=== PATIENT | male | born 1980 | race Hispanic/Latino ===

== ENCOUNTER 2022-05-15 09:47 | Observation (INO) | payer BC, OTHER ==
[~2022-05-15] VITALS: Ht 177.8 cm; Wt 90.7 kg
[2022-05-15] VITALS (23 sets, daily range): BP systolic 98–125; BP diastolic 59–83
[2022-05-15 10:25] LABS: BASOPHILS % (AUTO) 0.2 % (0.0-5.0); EOSINOPHILS % (AUTO) 0.9 % (0.0-8.0); HEMATOCRIT 44.6 % (42-54); LYMPHOCYTES % (AUTO) 18.8 % (21.0-51.0); MEAN CORPUSCULAR HEMOGLOBIN 29.4 pg (27.0-33.0); MONOCYTES % (AUTO) 7.2 % (3.0-13.0); NEUTROPHILS % (AUTO) 72.5 % (40.0-77.0); PLATELET COUNT (AUTO) 251 K/uL (130-400); RED BLOOD CELL COUNT(AUTO) 5.31 MIL/uL (4.50-6.20); RED CELL DISTRIBUTION WIDTH 11.7 % (11.0-15.5); WHITE BLOOD COUNT (AUTO) 17.4 K/uL (4.8-10.8)
[2022-05-15 10:45] LABS: ALBUMIN 4.3 g/dL (3.5-5.0); CREATININE 1.4 mg/dL (0.5-1.5); POTASSIUM 3.7 mmol/L (3.5-5.1); TOTAL PROTEIN, SERUM 7.9 g/dL (6.0-8.3)
[2022-05-15] MEDS ORDERED: IOHEXOL-350 75 ML VIAL IV ONE (11:20)
[2022-05-15] MEDS ORDERED: 0.9%NACL 1000ML 1,000 ML IV ONE (11:21)
[2022-05-15] MEDS: 0.9%NACL 1000ML 1,000 ML IV SCH ×4 (11:36→20:01)
[2022-05-15] MEDS ORDERED: ZOSYN 3.375GM+NS 50ML 50 ML IVPB ONE (12:15)
[2022-05-15] MEDS ORDERED: ZOSYN 3.375GM +NS 50ML IVPB ONE (12:30)
[2022-05-15] MEDS ORDERED: HYDROMORPHONE 0.5 MG SYG (0.5MG/0.5ML) IVP PRN (13:00)
[2022-05-15] MEDS ORDERED: ONDANSETRON 4MG INJ IVP PRN (13:00)
[2022-05-15] MEDS ORDERED: ACETAMINOPHEN 500 MG TABLET PO PRN (13:00)
[2022-05-15] MEDS: ZOSYN 3.375GM +NS 50ML IVPB SCH ×2 (13:30→20:01)
[2022-05-15] MEDS ORDERED: 0.9%NACL 50ML IV SCH (13:30)
[2022-05-15 13:43] LABS: APPEARANCE,URINE CLEAR (CLEAR); BILIRUBIN,URINE NEGATIVE (NEGATIVE); COLOR,URINE COLORLESS (YELLOW); GLUCOSE, URINE (UA) NEGATIVE (NEGATIVE); KETONES,URINE NEGATIVE (NEGATIVE); LEUKOCYTE ESTERASE ,URINE NEGATIVE Leu/uL (NEGATIVE); NITRATE,URINE NEGATIVE (NEGATIVE); OCCULT BLOOD,URINE NEGATIVE (NEGATIVE); PH,URINE 5.5 (5.0-8.0); PROTEIN,URINE NEGATIVE (NEGATIVE); UROBILINOGEN,URINE 0.2 mg/dL (0.2-1.0)
[2022-05-15 13:45] LABS: RBC,URINE 0-1 /HPF (0-1); WBC,URINE 0-1 /HPF (0-1)
[2022-05-15 13:45] LABS: PROTHROMBIN TIME 10.9 SEC (9.6-11.6)
[2022-05-15 13:46] LABS: PARTIAL THROMBOPLASTIN TIME 31.4 SEC (26.3-35.5)
[2022-05-15] MEDS ORDERED: PANTOPRAZOLE 40 MG/VIAL ONE (14:07)
[2022-05-15] MEDS: PANTOPRAZOLE 40 MG/VIAL IVP SCH (14:09)
[2022-05-15] MEDS ORDERED: HYDROMORPHONE 0.5 MG SYG (0.5MG/0.5ML) ONE (14:11)
[2022-05-15 14:17] LABS: MAGNESIUM 2.2 mg/dL (1.80-2.40)
[2022-05-15] MEDS ORDERED: BUPIVACAINE/PF 0.5% 30ML VIAL ONE (15:19)
[2022-05-15 15:21] LABS: THYROID STIMULATING HORMONE 1.59 uIU/mL (0.36-3.74)
[2022-05-15] MEDS ORDERED: ROCURONIUM 10MG/1ML SYR 10 MG/ML ML ONE ×2 (16:27→17:12)
[2022-05-15] MEDS ORDERED: FENTANYL CITRATE PF 50 MCG/1 ML 2ML VIAL ONE ×2 (16:27→16:50)
[2022-05-15] MEDS ORDERED: MIDAZOLAM HCL 1 MG/ML 2ML VIAL ONE (16:27)
[2022-05-15] MEDS ORDERED: PROPOFOL 10 MG/ML 20ML VIAL IV ONE (16:27)
[2022-05-15] MEDS ORDERED: ONDANSETRON 4MG INJ ONE (16:50)
[2022-05-15] MEDS ORDERED: HYDROMORPHONE 1 MG INJ ONE (17:02)
[2022-05-15] MEDS ORDERED: GLYCOPYRROLATE 1 MG/5 ML SYRINGE ONE (17:36)
[2022-05-15] MEDS ORDERED: NEOSTIGMINE 5MG/5ML SYR IV ONE (17:40)
[2022-05-15] MEDS ORDERED: KETOROLAC 15MG/ML VIAL (15MG/ML) IV PRN (20:30)
[2022-05-16] VITALS: BP 111/63
[2022-05-16 00:56] VITALS: BP 113/64
[2022-05-16 04:00] VITALS: BP 96/64
[2022-05-16] MEDS: ZOSYN 3.375GM +NS 50ML IVPB SCH ×2 (04:00→13:11)
[2022-05-16 05:09] LABS: HEMATOCRIT 35.6 % (42-54); MEAN CORPUSCULAR HGB CONC 33.4 g/dL (32.0-36.0); MEAN CORPUSCULAR VOLUME 86.6 fL (79-99); RED BLOOD CELL COUNT(AUTO) 4.11 MIL/uL (4.50-6.20); RED CELL DISTRIBUTION WIDTH 11.9 % (11.0-15.5); WHITE BLOOD COUNT (AUTO) 8.6 K/uL (4.8-10.8)
[2022-05-16 05:21] LABS: CREATININE 1.2 mg/dL (0.5-1.5); POTASSIUM 3.8 mmol/L (3.5-5.1)
[2022-05-16 06:16] LABS: ALBUMIN 3.1 g/dL (3.5-5.0); BILIRUBIN,DIRECT 0.1 mg/dL (0.0-0.3); TOTAL PROTEIN, SERUM 6.1 g/dL (6.0-8.3)
[2022-05-16] MEDS ORDERED: LEVO-70 PO (07:38)
[2022-05-16 08:00] VITALS: BP 113/71
[2022-05-16] MEDS: 0.9%NACL 1000ML 1,000 ML IV SCH (08:27)
[2022-05-16] MEDS ORDERED: METR-172 PO (10:01)
[2022-05-16 12:00] VITALS: BP 118/77
[2022-05-16] MEDS: PANTOPRAZOLE 40 MG/VIAL IVP SCH (13:12)
[2022-05-16 16:00] VITALS: BP 112/64
[2022-06-08] MEDS ORDERED: CYCL10TA16 PO (00:26)
[2022-06-08] MEDS ORDERED: IBUP-2070 PO (00:26)
== END 2022-05-16 18:00 | disposition home or self-care (01) ==
LOC: EDH 09:47 → EDHIP 13:03 → INTOOBSV 13:03 → 4BH 18:32
PROVIDERS: ADMIT Internal Medicine; ATTEND Internal Medicine
DX: K35.80 Unspecified acute appendicitis (principal); Z20.822 Contact with and (suspected) exposure to COVID-19; N17.9 Acute kidney failure, unspecified; D72.829 Elevated white blood cell count, unspecified; E87.1 Hypo-osmolality and hyponatremia; K75.9 Inflammatory liver disease, unspecified; E78.1 Pure hyperglyceridemia; E86.1 Hypovolemia; Z21 Asymptomatic human immunodeficiency virus [HIV] infection status; Z79.899 Other long term (current) drug therapy
CPT/HCPCS: 44970; 96365; 96366 ×4; 96375; 99285; 83036; 84443; 82550; 83735; 84484; 80053; 83690; 85025; 85610; 85730; 87804 ×2; 83605; 81001; 36415 ×2; 87635; 71045; 74177; 93005; 96376; 80076; 80048; 85027; J7030 ×3; J3010 ×2; J1170 ×2; J3490 ×2; J2710; J2250; J2704; J2405; J2543 ×4; C9113 ×2; Q9967; C1769 ×3; A4649 ×2; A4600; G0378 ×10; 96361